=== PATIENT | male | born 1965 | race Caucasian/White ===

== ENCOUNTER 2017-08-26 19:40 | Emergency (ER) | payer OTHER ==
[~2017-08-26] VITALS: Ht 167.6 cm; Wt 141.8 kg
[2017-08-26 20:35] LABS: HEMATOCRIT 32.5 % (38.0-50.0); HEMOGLOBIN 10.4 G/DL (12.5-16.6); MCH 27.5 PG (29.0-34.0); PLATELET COUNT 267 K/uL (156-360); RBC DIS.WIDTH-CV 19.9 % (11.8-14.6); RBC DIS.WIDTH-SD 61.4 % (39-53); RED BLOOD COUNT 3.78 M/uL (4.00-5.50); WHITE BLOOD COUNT 6.8 K/uL (4.1-10.2)
[2017-08-26 20:47] LABS: ALBUMIN 3.4 g/dL (3.2-4.8); CHLORIDE 108 mEq/L (99-109); POTASSIUM 4.1 mEq/L (3.7-5.4); SODIUM 144 mEq/L (136-147)
[2017-08-26 20:49] LABS: GLUCOSE 103 mg/dL (70-99)
[2017-08-26 20:50] LABS: TOTAL PROTEIN 7.7 g/dL (6.4-8.3)
[2017-08-26 20:51] LABS: TOTAL BILIRUBIN 0.3 mg/dL (0.0-1.0)
[2017-08-26 20:53] LABS: ALKALINE PHOSPHATASE 129 IU/L (3-129); CREATININE 1.3 mg/dL (0.6-1.3); GFR ESTIMATE (CALCULATED) > 59 mL/min/ (58.99-99999)
[2017-08-26 20:54] LABS: UREA NITROGEN (BUN) 21 mg/dL (9-23)
[2017-08-26 20:55] LABS: AST (GOT) 17 IU/L (2-34)
[2017-08-26 20:56] LABS: ALT (GPT) 35 IU/L (3-49)
[2017-08-26 21:29] LABS: APPEARANCE CLEAR ((CLEAR)); BILIRUBIN NEGATIVE; BLOOD NEGATIVE; COLOR YELLOW ((YELLOW)); GLUCOSE (STRIP) NEGATIVE; KETONES NEGATIVE; LEUKOCYTES MODERATE; NITRITE NEGATIVE; PROTEIN (STRIP) NEGATIVE; SPECIFIC GRAVITY 1.018 (1.000-1.030); UROBILINOGEN 0.2 MG/DL (0.2-1.0)
[2017-08-26 21:32] LABS: BACTERIA RARE /HPF; EPITHELIAL CELLS RARE /HPF; MUCUS TRACE /LPF; RED BLOOD CELLS 0-5 /HPF (0-5); UCUL ADDED? YES; WHITE BLOOD CELLS 40-50 /HPF (0-5)
[2017-08-26] MEDS ORDERED: CIPRO500 MG PO (23:00)
[2017-08-26] MEDS ORDERED: FLAGYL500 MG PO (23:00)
[2017-08-26 23:13] VITALS: BP 158/102
== END 2017-08-26 23:14 | disposition home or self-care (01) ==
LOC: EME 19:40
DX: K57.32 Diverticulitis of large intestine without perforation or abscess without bleeding (principal); N20.0 Calculus of kidney; Z90.49 Acquired absence of other specified parts of digestive tract
CPT/HCPCS: 74177; 80053; 81003; 85027; 87086; 99281; 99284

== ENCOUNTER 2017-11-02 21:56 | Inpatient (IN) | payer OTHER ==
[~2017-11-02] VITALS: Ht 167.6 cm; Wt 141.5 kg
[~2017-11-02 21:56] MED LIST: CIPRO500 MG PO; FLAGYL500 MG PO
[2017-11-02 22:46] LABS: HEMATOCRIT 36.1 % (38.0-50.0); HEMOGLOBIN 11.9 G/DL (12.5-16.6); MCH 27.9 PG (29.0-34.0); PLATELET COUNT 250 K/uL (156-360); RBC DIS.WIDTH-SD 43.1 % (39-53); RED BLOOD COUNT 4.27 M/uL (4.00-5.50); WHITE BLOOD COUNT 14.2 K/uL (4.1-10.2)
[2017-11-02 22:48] LABS: MCV 84.5 FL (86-99)
[2017-11-02 22:56] LABS: ALBUMIN 3.3 g/dL (3.2-4.8)
[2017-11-02 22:57] LABS: CHLORIDE 103 mEq/L (99-109); POTASSIUM 3.4 mEq/L (3.7-5.4); SODIUM 135 mEq/L (136-147)
[2017-11-02 22:59] LABS: GLUCOSE 123 mg/dL (70-99); TOTAL PROTEIN 7.8 g/dL (6.4-8.3)
[2017-11-02 23:01] LABS: TOTAL BILIRUBIN 0.5 mg/dL (0.0-1.0)
[2017-11-02 23:02] LABS: ALKALINE PHOSPHATASE 71 IU/L (3-129)
[2017-11-02 23:03] LABS: GFR ESTIMATE (CALCULATED) 38 mL/min/ (58.99-99999)
[2017-11-02 23:04] LABS: AST (GOT) 12 IU/L (2-34); UREA NITROGEN (BUN) 22 mg/dL (9-23)
[2017-11-02 23:05] LABS: ALT (GPT) 10 IU/L (3-49)
[2017-11-03] VITALS (9 sets, daily range): BP systolic 83–136; BP diastolic 50–74
[2017-11-03 01:35] LABS: APPEARANCE SL.HAZY ((CLEAR)); BILIRUBIN NEGATIVE; BLOOD NEGATIVE; COLOR AMBER ((YELLOW)); GLUCOSE (STRIP) NEGATIVE; KETONES 5; LEUKOCYTES MODERATE; NITRITE NEGATIVE; PROTEIN (STRIP) 100; UROBILINOGEN 0.2 MG/DL (0.2-1.0)
[2017-11-03 01:38] LABS: BACTERIA NONE SEEN /HPF; EPITHELIAL CELLS RARE /HPF; MUCUS TRACE /LPF; RED BLOOD CELLS 0-5 /HPF (0-5); UCUL ADDED? YES
[2017-11-03] MEDS ORDERED: ALLOPURINOL100 MG PO (01:42)
[2017-11-03] MEDS ORDERED: PRAVASTATIN SOD20 MG PO (01:43)
[2017-11-03] MEDS ORDERED: INDOMETHACIN25 MG PO (01:43)
[2017-11-03] MEDS ORDERED: PANTOPRAZOLE SO40 MG PO (01:44)
[2017-11-03] MEDS ORDERED: ELIQUIS5 MG PO (01:44)
[2017-11-03] MEDS ORDERED: CARDIZEM CD,CA240 MG PO (01:46)
[2017-11-03 20:17] LABS: BASOPHIL (%) 0.2 % (0-1); EOSINOPHIL (%) 0.3 % (0-5); HEMATOCRIT 34.9 % (38.0-50.0); HEMOGLOBIN 10.9 G/DL (12.5-16.6); IMMATURE GRANULOCYTE (%) 0.4 % (0.0-0.7); LYMPHOCYTE (%) 6.1 % (15-42); LYMPHOCYTE COUNT 0.8 K/uL (1.0-2.8); MCH 27.3 PG (29.0-34.0); MCHC 31.2 G/DL (30.0-36.0); MCV 87.3 FL (86-99); MONOCYTE (%) 6.7 % (3-12); MONOCYTE COUNT 0.9 K/uL (0-0.8); NEUTROPHIL (%) 86.3 % (45-76); PLATELET COUNT 220 K/uL (156-360); RBC DIS.WIDTH-SD 44.9 % (39-53); WHITE BLOOD COUNT 12.8 K/uL (4.1-10.2)
[2017-11-03 20:41] LABS: ALBUMIN 2.7 G/DL (3.2-4.8); ALKALINE PHOSPHATASE 156 IU/L (3-129); ALT (GPT) 10 IU/L (3-49); AST (GOT) 15 IU/L (2-34); CHLORIDE 107 MEQ/L (99-109); SODIUM 139 MEQ/L (136-147); TOTAL BILIRUBIN 0.3 MG/DL (0.0-1.0); UREA NITROGEN (BUN) 20 mg/dL (9-23)
[2017-11-03 20:49] LABS: CREATININE 1.5 MG/DL (0.6-1.3); GFR ESTIMATE (CALCULATED) 52 mL/min/ (58.99-99999); GLUCOSE 92 mg/dL (70-99)
[2017-11-03 21:53] LABS: HIGH-SENS C-REACTIVE PROTEIN > 8.00 MG/DL (0.02-0.20)
[2017-11-04 03:42] VITALS: BP 128/77
[2017-11-04 05:37] LABS: UR CREATININE CONCENTRATION 155.2 MG/DL
[2017-11-04 06:26] LABS: BASOPHIL (%) 0.2 % (0-1); EOSINOPHIL (%) 0.3 % (0-5); HEMATOCRIT 35.9 % (38.0-50.0); IMMATURE GRANULOCYTE (%) 0.5 % (0.0-0.7); LYMPHOCYTE (%) 7.3 % (15-42); LYMPHOCYTE COUNT 0.9 K/uL (1.0-2.8); MCHC 30.6 G/DL (30.0-36.0); MONOCYTE (%) 5.9 % (3-12); MONOCYTE COUNT 0.7 K/uL (0-0.8); NEUTROPHIL (%) 85.8 % (45-76); NEUTROPHIL COUNT 10.7 K/uL (1.8-6.4); PLATELET COUNT 230 K/uL (156-360); RED BLOOD COUNT 4.08 M/uL (4.00-5.50); WHITE BLOOD COUNT 12.5 K/uL (4.1-10.2)
[2017-11-04 06:50] LABS: ALBUMIN 2.5 G/DL (3.2-4.8); ALKALINE PHOSPHATASE 134 IU/L (3-129); ALT (GPT) 9 IU/L (3-49); AST (GOT) 12 IU/L (2-34); CHLORIDE 108 MEQ/L (99-109); CREATININE 1.4 MG/DL (0.6-1.3); GFR ESTIMATE (CALCULATED) 57 mL/min/ (58.99-99999); GLUCOSE 73 mg/dL (70-99); POTASSIUM 3.8 MEQ/L (3.7-5.4); SODIUM 141 MEQ/L (136-147); TOTAL BILIRUBIN 0.3 MG/DL (0.0-1.0); TOTAL PROTEIN 5.8 G/DL (6.4-8.3); UREA NITROGEN (BUN) 20 mg/dL (9-23)
[2017-11-04 07:37] VITALS: BP 115/59
[2017-11-04 10:57] VITALS: BP 114/59
[2017-11-04 15:51] VITALS: BP 113/58
[2017-11-05 01:21] VITALS: BP 136/74
[2017-11-05 04:28] VITALS: BP 122/67
[2017-11-05 06:11] LABS: BASOPHIL (%) 0.2 % (0-1); EOSINOPHIL (%) 0.8 % (0-5); EOSINOPHIL COUNT 0.1 K/uL (0-0.3); HEMATOCRIT 36.4 % (38.0-50.0); IMMATURE GRANULOCYTE (%) 0.5 % (0.0-0.7); LYMPHOCYTE (%) 6.7 % (15-42); LYMPHOCYTE COUNT 0.7 K/uL (1.0-2.8); MCH 26.6 PG (29.0-34.0); MCHC 30.2 G/DL (30.0-36.0); MCV 88.1 FL (86-99); MONOCYTE (%) 5.1 % (3-12); MONOCYTE COUNT 0.5 K/uL (0-0.8); NEUTROPHIL (%) 86.7 % (45-76); NEUTROPHIL COUNT 8.7 K/uL (1.8-6.4); PLATELET COUNT 258 K/uL (156-360); RBC DIS.WIDTH-CV 14.2 % (11.8-14.6); RBC DIS.WIDTH-SD 45.5 % (39-53); RED BLOOD COUNT 4.13 M/uL (4.00-5.50)
[2017-11-05 06:35] LABS: CHLORIDE 110 MEQ/L (99-109); CREATININE 1.2 MG/DL (0.6-1.3); GFR ESTIMATE (CALCULATED) > 59 mL/min/ (58.99-99999); GLUCOSE 90 mg/dL (70-99); MAGNESIUM 1.8 mg/dl (1.3-2.7); PHOSPHORUS 3.6 mg/dL (2.5-4.9); SODIUM 141 MEQ/L (136-147); UREA NITROGEN (BUN) 16 mg/dL (9-23)
[2017-11-05 07:19] VITALS: BP 136/62
[2017-11-05 11:17] VITALS: BP 136/70
[2017-11-05 15:34] VITALS: BP 123/71
[2017-11-05 19:30] VITALS: BP 127/63
[2017-11-06] VITALS (7 sets, daily range): BP systolic 121–166; BP diastolic 73–94
[2017-11-07] VITALS (7 sets, daily range): BP systolic 134–1374; BP diastolic 71–92
[2017-11-08 03:36] VITALS: BP 133/79
[2017-11-08 06:43] LABS: HEMATOCRIT 33.1 % (38.0-50.0); HEMOGLOBIN 10.3 G/DL (12.5-16.6); MCH 26.8 PG (29.0-34.0); MCHC 31.1 G/DL (30.0-36.0); PLATELET COUNT 277 K/uL (156-360); RBC DIS.WIDTH-CV 13.7 % (11.8-14.6); RBC DIS.WIDTH-SD 43.4 % (39-53); RED BLOOD COUNT 3.85 M/uL (4.00-5.50); WHITE BLOOD COUNT 7.3 K/uL (4.1-10.2)
[2017-11-08 06:55] VITALS: BP 140/83
[2017-11-08 07:09] LABS: CHLORIDE 111 MEQ/L (99-109); CREATININE 0.8 MG/DL (0.6-1.3); GFR ESTIMATE (CALCULATED) > 59 mL/min/ (58.99-99999); GLUCOSE 102 mg/dL (70-99); PHOSPHORUS 3.6 mg/dL (2.5-4.9); POTASSIUM 3.3 MEQ/L (3.7-5.4); SODIUM 143 MEQ/L (136-147); UREA NITROGEN (BUN) 6 mg/dL (9-23)
[2017-11-08 07:10] LABS: MAGNESIUM 1.5 mg/dl (1.3-2.7)
[2017-11-08 11:34] VITALS: BP 156/93
[2017-11-08 16:17] VITALS: BP 139/78
[2017-11-09 00:21] VITALS: BP 140/74
[2017-11-09 07:30] VITALS: BP 147/67
[2017-11-09 12:20] VITALS: BP 138/91
[2017-11-09 17:04] VITALS: BP 169/89
[2017-11-09 23:15] VITALS: BP 159/93
[2017-11-10 06:50] LABS: HEMATOCRIT 36.7 % (38.0-50.0); HEMOGLOBIN 11.5 G/DL (12.5-16.6); MCH 26.6 PG (29.0-34.0); MCHC 31.3 G/DL (30.0-36.0); PLATELET COUNT 333 K/uL (156-360); RBC DIS.WIDTH-CV 13.8 % (11.8-14.6); RED BLOOD COUNT 4.32 M/uL (4.00-5.50); WHITE BLOOD COUNT 11.4 K/uL (4.1-10.2)
[2017-11-10 07:35] VITALS: BP 160/89
[2017-11-10 07:44] LABS: CHLORIDE 113 MEQ/L (99-109); CREATININE 0.7 MG/DL (0.6-1.3); GFR ESTIMATE (CALCULATED) > 59 mL/min/ (58.99-99999); GLUCOSE 92 mg/dL (70-99); POTASSIUM 3.2 MEQ/L (3.7-5.4); SODIUM 147 MEQ/L (136-147); UREA NITROGEN (BUN) 4 mg/dL (9-23)
[2017-11-10 16:21] VITALS: BP 160/88
[2017-11-11 00:10] VITALS: BP 158/79
[2017-11-11 06:49] LABS: HEMATOCRIT 38.6 % (38.0-50.0); MCH 26.3 PG (29.0-34.0); MCHC 31.1 G/DL (30.0-36.0); MCV 84.6 FL (86-99); PLATELET COUNT 332 K/uL (156-360); RBC DIS.WIDTH-CV 13.9 % (11.8-14.6); RBC DIS.WIDTH-SD 42.8 % (39-53); RED BLOOD COUNT 4.56 M/uL (4.00-5.50); WHITE BLOOD COUNT 14.3 K/uL (4.1-10.2)
[2017-11-11 07:53] VITALS: BP 174/75
[2017-11-11 15:57] VITALS: BP 171/89
[2017-11-12 00:20] VITALS: BP 148/78
[2017-11-12 06:02] LABS: CHLORIDE 106 MEQ/L (99-109); CREATININE 0.9 MG/DL (0.6-1.3); GFR ESTIMATE (CALCULATED) > 59 mL/min/ (58.99-99999); GLUCOSE 99 mg/dL (70-99); POTASSIUM 3.3 MEQ/L (3.7-5.4); SODIUM 143 MEQ/L (136-147); UREA NITROGEN (BUN) 6 mg/dL (9-23)
[2017-11-12 07:45] VITALS: BP 174/100
[2017-11-12 23:35] VITALS: BP 169/88
[2017-11-13 08:46] VITALS: BP 139/97
[2017-11-13 16:05] VITALS: BP 163/87
[2017-11-13 19:47] VITALS: BP 169/94
[2017-11-13 23:33] VITALS: BP 150/92
[2017-11-14 07:45] LABS: CHLORIDE 106 MEQ/L (99-109); CREATININE 0.8 MG/DL (0.6-1.3); GFR ESTIMATE (CALCULATED) > 59 mL/min/ (58.99-99999); GLUCOSE 106 mg/dL (70-99); POTASSIUM 3.6 MEQ/L (3.7-5.4); SODIUM 140 MEQ/L (136-147); UREA NITROGEN (BUN) 6 mg/dL (9-23)
[2017-11-14 07:47] LABS: HEMATOCRIT 38.9 % (38.0-50.0); HEMOGLOBIN 12.2 G/DL (12.5-16.6); MCH 26.8 PG (29.0-34.0); MCHC 31.4 G/DL (30.0-36.0); MCV 85.3 FL (86-99); PLATELET COUNT 365 K/uL (156-360); RBC DIS.WIDTH-CV 14.6 % (11.8-14.6); RBC DIS.WIDTH-SD 44.7 % (39-53); RED BLOOD COUNT 4.56 M/uL (4.00-5.50); WHITE BLOOD COUNT 13.4 K/uL (4.1-10.2)
[2017-11-14 08:16] VITALS: BP 164/83
[2017-11-14 16:00] VITALS: BP 135/91
[2017-11-14 23:26] VITALS: BP 115/70
[2017-11-15 05:47] LABS: HEMATOCRIT 38.1 % (38.0-50.0); HEMOGLOBIN 12.3 G/DL (12.5-16.6); MCH 26.9 PG (29.0-34.0); MCHC 32.3 G/DL (30.0-36.0); MCV 83.2 FL (86-99); PLATELET COUNT 342 K/uL (156-360); RBC DIS.WIDTH-CV 14.6 % (11.8-14.6); RBC DIS.WIDTH-SD 43.4 % (39-53); RED BLOOD COUNT 4.58 M/uL (4.00-5.50); WHITE BLOOD COUNT 12.4 K/uL (4.1-10.2)
[2017-11-15 06:32] LABS: CHLORIDE 105 MEQ/L (99-109); CREATININE 0.6 MG/DL (0.6-1.3); GFR ESTIMATE (CALCULATED) > 59 mL/min/ (58.99-99999); GLUCOSE 112 mg/dL (70-99); POTASSIUM 3.2 MEQ/L (3.7-5.4); SODIUM 141 MEQ/L (136-147); UREA NITROGEN (BUN) 7 mg/dL (9-23)
[2017-11-15 08:14] VITALS: BP 133/85
[2017-11-15 15:44] VITALS: BP 130/80
[2017-11-15 19:54] VITALS: BP 146/84
[2017-11-15 23:49] VITALS: BP 112/66
[2017-11-16 06:40] LABS: CHLORIDE 104 MEQ/L (99-109); CREATININE 0.8 MG/DL (0.6-1.3); GFR ESTIMATE (CALCULATED) > 59 mL/min/ (58.99-99999); GLUCOSE 125 mg/dL (70-99); POTASSIUM 3.8 MEQ/L (3.7-5.4); SODIUM 141 MEQ/L (136-147); UREA NITROGEN (BUN) 7 mg/dL (9-23)
[2017-11-16 08:43] VITALS: BP 125/69
[2017-11-16 15:53] VITALS: BP 160/72
[2017-11-16 21:23] VITALS: BP 118/69
[2017-11-16 21:30] VITALS: BP 118/69
[2017-11-16 23:48] VITALS: BP 133/79
[2017-11-17 00:02] LABS: C DIFF TOXIN NEGATIVE (NEGATIVE)
[2017-11-17 01:13] LABS: BASOPHIL (%) 0.1 % (0-1); EOSINOPHIL (%) 0.5 % (0-5); EOSINOPHIL COUNT 0.1 K/uL (0-0.3); HEMATOCRIT 37.2 % (38.0-50.0); IMMATURE GRANULOCYTE (%) 0.3 % (0.0-0.7); LYMPHOCYTE (%) 5.6 % (15-42); LYMPHOCYTE COUNT 0.8 K/uL (1.0-2.8); MCH 26.8 PG (29.0-34.0); MCHC 32.3 G/DL (30.0-36.0); MCV 83.2 FL (86-99); MONOCYTE COUNT 0.9 K/uL (0-0.8); NEUTROPHIL (%) 87.5 % (45-76); NEUTROPHIL COUNT 12.6 K/uL (1.8-6.4); PLATELET COUNT 386 K/uL (156-360); RBC DIS.WIDTH-CV 14.6 % (11.8-14.6); RBC DIS.WIDTH-SD 43.7 % (39-53); RED BLOOD COUNT 4.47 M/uL (4.00-5.50); WHITE BLOOD COUNT 14.4 K/uL (4.1-10.2)
[2017-11-17 01:14] LABS: HEMATOCRIT 37.3 % (38.0-50.0); HEMOGLOBIN 12.2 G/DL (12.5-16.6); MCH 27.4 PG (29.0-34.0); MCHC 32.7 G/DL (30.0-36.0); MCV 83.6 FL (86-99); PLATELET COUNT 380 K/uL (156-360); RBC DIS.WIDTH-CV 14.6 % (11.8-14.6); RED BLOOD COUNT 4.46 M/uL (4.00-5.50)
[2017-11-17 01:34] LABS: TROP-I INTERPRETATION NEGATIVE; TROPONIN-I 0.01 ng/mL (0.0-0.30)
[2017-11-17 03:42] VITALS: BP 138/78
[2017-11-17 07:28] VITALS: BP 122/66
[2017-11-17 11:52] VITALS: BP 109/61
[2017-11-17 15:47] VITALS: BP 97/56
[2017-11-17 19:52] VITALS: BP 104/63
[2017-11-17 23:29] VITALS: BP 103/63
[2017-11-18 04:05] VITALS: BP 102/66
[2017-11-18 06:29] LABS: BASOPHIL (%) 0.2 % (0-1); EOSINOPHIL (%) 1.6 % (0-5); EOSINOPHIL COUNT 0.1 K/uL (0-0.3); HEMATOCRIT 33.9 % (38.0-50.0); HEMOGLOBIN 10.6 G/DL (12.5-16.6); IMMATURE GRANULOCYTE (%) 0.3 % (0.0-0.7); LYMPHOCYTE (%) 16.5 % (15-42); LYMPHOCYTE COUNT 1.1 K/uL (1.0-2.8); MCH 26.7 PG (29.0-34.0); MCHC 31.3 G/DL (30.0-36.0); MCV 85.4 FL (86-99); MONOCYTE COUNT 0.8 K/uL (0-0.8); NEUTROPHIL (%) 69.4 % (45-76); NEUTROPHIL COUNT 4.5 K/uL (1.8-6.4); PLATELET COUNT 364 K/uL (156-360); RBC DIS.WIDTH-CV 14.8 % (11.8-14.6); RBC DIS.WIDTH-SD 45.4 % (39-53); RED BLOOD COUNT 3.97 M/uL (4.00-5.50); WHITE BLOOD COUNT 6.4 K/uL (4.1-10.2)
[2017-11-18 06:53] LABS: ALBUMIN 2.7 G/DL (3.2-4.8); ALKALINE PHOSPHATASE 52 IU/L (3-129); ALT (GPT) 4 IU/L (3-49); AST (GOT) < 7 IU/L (2-34); CHLORIDE 105 MEQ/L (99-109); CREATININE 1.1 MG/DL (0.6-1.3); DIRECT BILIRUBIN 0.1 mg/dL (0.0-0.3); GFR ESTIMATE (CALCULATED) > 59 mL/min/ (58.99-99999); GLUCOSE 129 mg/dL (70-99); MAGNESIUM 1.5 mg/dl (1.3-2.7); PHOSPHORUS 4.3 mg/dL (2.5-4.9); POTASSIUM 3.7 MEQ/L (3.7-5.4); PREALBUMIN 10.2 mg/dL (10-40); SODIUM 141 MEQ/L (136-147); TOTAL BILIRUBIN 0.3 MG/DL (0.0-1.0); TOTAL PROTEIN 6.2 G/DL (6.4-8.3); TRIGLYCERIDES 124 MG/DL (Normal: <150); UREA NITROGEN (BUN) 16 mg/dL (9-23)
[2017-11-18 07:16] VITALS: BP 132/64
[2017-11-18 12:24] VITALS: BP 125/62
[2017-11-18 16:52] VITALS: BP 119/76
[2017-11-18 19:42] VITALS: BP 117/61
[2017-11-18 22:42] VITALS: BP 117/59
[2017-11-19 04:00] VITALS: BP 108/70
[2017-11-19 05:48] LABS: CHLORIDE 109 MEQ/L (99-109); CREATININE 0.9 MG/DL (0.6-1.3); GFR ESTIMATE (CALCULATED) > 59 mL/min/ (58.99-99999); GLUCOSE 136 mg/dL (70-99); MAGNESIUM 1.6 mg/dl (1.3-2.7); PHOSPHORUS 3.3 mg/dL (2.5-4.9); POTASSIUM 3.5 MEQ/L (3.7-5.4); SODIUM 143 MEQ/L (136-147); UREA NITROGEN (BUN) 21 mg/dL (9-23)
[2017-11-19 07:54] VITALS: BP 91/56
[2017-11-19 10:56] VITALS: BP 98/59
[2017-11-19 16:03] LABS: 24 HR VOLUME 725 MLS
[2017-11-19 16:19] VITALS: BP 104/56
[2017-11-19 16:36] LABS: URINE UREA NITROGEN 4473 MG/24 HR
[2017-11-19 19:31] VITALS: BP 110/71
[2017-11-19 23:35] VITALS: BP 109/63
[2017-11-20] VITALS (7 sets, daily range): BP systolic 99–158; BP diastolic 58–81
[2017-11-20 09:53] LABS: CHLORIDE 109 MEQ/L (99-109); CREATININE 0.8 MG/DL (0.6-1.3); GFR ESTIMATE (CALCULATED) > 59 mL/min/ (58.99-99999); GLUCOSE 164 mg/dL (70-99); MAGNESIUM 1.9 mg/dl (1.3-2.7); PHOSPHORUS 3.3 mg/dL (2.5-4.9); POTASSIUM 3.8 MEQ/L (3.7-5.4); SODIUM 142 MEQ/L (136-147); UREA NITROGEN (BUN) 24 mg/dL (9-23)
[2017-11-21 06:52] LABS: CHLORIDE 113 MEQ/L (99-109); CREATININE 0.7 MG/DL (0.6-1.3); GFR ESTIMATE (CALCULATED) > 59 mL/min/ (58.99-99999); GLUCOSE 138 mg/dL (70-99); MAGNESIUM 1.9 mg/dl (1.3-2.7); PHOSPHORUS 3.4 mg/dL (2.5-4.9); POTASSIUM 3.8 MEQ/L (3.7-5.4); SODIUM 143 MEQ/L (136-147); UREA NITROGEN (BUN) 20 mg/dL (9-23)
[2017-11-21 07:45] VITALS: BP 137/74
[2017-11-21 15:52] VITALS: BP 126/71
[2017-11-22 00:21] VITALS: BP 163/70
[2017-11-22 07:13] LABS: BASOPHIL (%) 0.3 % (0-1); EOSINOPHIL (%) 1.4 % (0-5); EOSINOPHIL COUNT 0.1 K/uL (0-0.3); HEMATOCRIT 29.1 % (38.0-50.0); IMMATURE GRANULOCYTE (%) 0.2 % (0.0-0.7); LYMPHOCYTE (%) 11.3 % (15-42); LYMPHOCYTE COUNT 0.7 K/uL (1.0-2.8); MCH 26.6 PG (29.0-34.0); MCHC 29.2 G/DL (30.0-36.0); MONOCYTE (%) 8.7 % (3-12); MONOCYTE COUNT 0.6 K/uL (0-0.8); NEUTROPHIL (%) 78.1 % (45-76); NEUTROPHIL COUNT 5.1 K/uL (1.8-6.4); RBC DIS.WIDTH-CV 16.2 % (11.8-14.6); RBC DIS.WIDTH-SD 53.4 % (39-53); WHITE BLOOD COUNT 6.5 K/uL (4.1-10.2)
[2017-11-22 07:14] LABS: HEMOGLOBIN 8.5 G/DL (12.5-16.6); MCV 90.9 FL (86-99)
[2017-11-22 07:37] LABS: PLAT.SUFFICIENCY ADEQUATE; PLATELET COUNT 188 K/uL (156-360)
[2017-11-22 07:46] VITALS: BP 117/68
[2017-11-22] MEDS ORDERED: DILTIAZEM 24HR240 MG PO (08:16)
[2017-11-22] MEDS ORDERED: NIFEDIPINE ER30 MG PO ×2 (08:16→13:28)
[2017-11-22] MEDS ORDERED: CARVEDILOL25 MG PO ×2 (08:16→13:28)
[2017-11-22 09:15] LABS: ALBUMIN 2.4 G/DL (3.2-4.8); ALKALINE PHOSPHATASE 50 IU/L (3-129); ALT (GPT) 5 IU/L (3-49); AST (GOT) < 7 IU/L (2-34); CHLORIDE 114 MEQ/L (99-109); CREATININE 0.7 MG/DL (0.6-1.3); DIRECT BILIRUBIN 0.1 mg/dL (0.0-0.3); GFR ESTIMATE (CALCULATED) > 59 mL/min/ (58.99-99999); GLUCOSE 148 mg/dL (70-99); MAGNESIUM 2.1 mg/dl (1.3-2.7); PHOSPHORUS 3.1 mg/dL (2.5-4.9); POTASSIUM 4.2 MEQ/L (3.7-5.4); PREALBUMIN 13.9 mg/dL (10-40); SODIUM 145 MEQ/L (136-147); TOTAL BILIRUBIN 0.3 MG/DL (0.0-1.0); TOTAL PROTEIN 5.5 G/DL (6.4-8.3); TRIGLYCERIDES 89 MG/DL (Normal: <150); UREA NITROGEN (BUN) 22 mg/dL (9-23)
[2017-11-22] MEDS ORDERED: CEFTRIAXONE2 G1 IV (11:26)
[2017-11-22] MEDS ORDERED: FLAGYL500 MG PO (11:27)
[2017-11-22] MEDS ORDERED: BACTRIM,SEPT1 TABLET PO (11:27)
[2017-11-22] MEDS ORDERED: HYDROCODON-ACE1 EAC9 PO (11:30)
[2017-11-22] MEDS ORDERED: CARDIZEM CD,CA240 MG PO (13:27)
== END 2017-11-22 14:48 | disposition home or self-care (01) | DRG 871 ==
LOC: EME 21:56 → EDOF 11-03 02:28 → 2EAST 11-03 02:28 → ENRESERV 11-03 02:29 → 2EAST 11-03 03:53 → CANRESERV 11-03 15:47 → ENRESERV 11-03 15:47 → 2EAST 11-03 19:35
PROVIDERS: Hospitalist; Internal Medicine; Internal Medicine Nephrology; Physician Assistant; Surgery; Thoracic Surgery (Cardiothoracic Vascular Surgery)
PROC: 0W9J30Z Drainage of Pelvic Cavity with Drainage Device, Percutaneous Approach (ICD-10-PCS; principal; 2017-11-10)
PROC: 02HV33Z Insertion of Infusion Device into Superior Vena Cava, Percutaneous Approach (ICD-10-PCS; 2017-11-18)
PROC: 2W53XYZ Removal of Other Device on Abdominal Wall (ICD-10-PCS; 2017-11-18)
DX: A41.9 Sepsis, unspecified organism (principal); K57.20 Diverticulitis of large intestine with perforation and abscess without bleeding; I10 Essential (primary) hypertension; E78.5 Hyperlipidemia, unspecified; E66.01 Morbid (severe) obesity due to excess calories; Z68.43 Body mass index [BMI] 50.0-59.9, adult; M10.9 Gout, unspecified; K21.9 Gastro-esophageal reflux disease without esophagitis; G47.33 Obstructive sleep apnea (adult) (pediatric); N17.0 Acute kidney failure with tubular necrosis; E11.9 Type 2 diabetes mellitus without complications; Z79.01 Long term (current) use of anticoagulants; W19.XXXA Unspecified fall, initial encounter; E44.0 Moderate protein-calorie malnutrition; Z86.718 Personal history of other venous thrombosis and embolism; E87.6 Hypokalemia; E87.1 Hypo-osmolality and hyponatremia; I48.2 Chronic atrial fibrillation; L73.9 Follicular disorder, unspecified; Z91.19 Patient's noncompliance with other medical treatment and regimen; K63.2 Fistula of intestine
CPT/HCPCS: 10030; 49406; 70450; 71045; 72125; 72192; 72193; 73030; 74176; 76770; 76937; 80048; 80053; 81003; 81050; 82248; 82570; 82948; 83605; 83735; 84100; 84134; 84145 90; 84156; 84478; 84484; 84540; 84630 90; 85025; 85027; 86141; 87040; 87070; 87075; 87086; 87205; 87493; 89190; 93005; 94660; 94799; 99281; 99285; C1729; C1769; J0692; J0696; J1200; J2270; J2405; J2543; J3010; J3480; J7030; J7050; J7120; S0030

== ENCOUNTER 2017-12-13 15:46 | Inpatient (IN) | payer OTHER ==
[~2017-12-13] VITALS: Ht 165.1 cm; Wt 138.8 kg
[~2017-12-13 15:46] MED LIST changes: +ALLOPURINOL100 MG PO; +BACTRIM,SEPT1 TABLET PO; +CARDIZEM CD,CA240 MG PO; +CARVEDILOL25 MG PO; +CEFTRIAXONE2 G1 IV; +DILTIAZEM 24HR240 MG PO; +ELIQUIS5 MG PO; +HYDROCODON-ACE1 EAC9 PO; +INDOMETHACIN25 MG PO; +NIFEDIPINE ER30 MG PO; +PANTOPRAZOLE SO40 MG PO; +PRAVASTATIN SOD20 MG PO
[2017-12-13 16:27] LABS: BASOPHIL (%) 0.2 % (0-1); EOSINOPHIL COUNT 0.1 K/uL (0-0.3); HEMATOCRIT 31.3 % (38.0-50.0); IMMATURE GRANULOCYTE (%) 0.9 % (0.0-0.7); LYMPHOCYTE (%) 7.5 % (15-42); LYMPHOCYTE COUNT 0.8 K/uL (1.0-2.8); MCH 26.2 PG (29.0-34.0); MCHC 31.9 G/DL (30.0-36.0); MCV 81.9 FL (86-99); MONOCYTE COUNT 0.9 K/uL (0-0.8); NEUTROPHIL (%) 82.4 % (45-76); NEUTROPHIL COUNT 9.2 K/uL (1.8-6.4); PLATELET COUNT 249 K/uL (156-360); RBC DIS.WIDTH-CV 16.9 % (11.8-14.6); RBC DIS.WIDTH-SD 49.7 % (39-53); RED BLOOD COUNT 3.82 M/uL (4.00-5.50); WHITE BLOOD COUNT 11.2 K/uL (4.1-10.2)
[2017-12-13 16:36] LABS: ALBUMIN 2.8 g/dL (3.2-4.8); CHLORIDE 104 mEq/L (99-109); POTASSIUM 4.4 mEq/L (3.7-5.4); SODIUM 134 mEq/L (136-147)
[2017-12-13 16:39] LABS: GLUCOSE 108 mg/dL (70-99); TOTAL PROTEIN 6.9 g/dL (6.4-8.3)
[2017-12-13 16:40] LABS: TOTAL BILIRUBIN 0.7 mg/dL (0.0-1.0)
[2017-12-13 16:42] LABS: ALKALINE PHOSPHATASE 172 IU/L (3-129); CREATININE 1.3 mg/dL (0.6-1.3); GFR ESTIMATE (CALCULATED) > 59 mL/min/ (58.99-99999)
[2017-12-13 16:43] LABS: UREA NITROGEN (BUN) 12 mg/dL (9-23)
[2017-12-13 16:44] LABS: AST (GOT) 48 IU/L (2-34)
[2017-12-13 16:45] LABS: ALT (GPT) 30 IU/L (3-49)
[2017-12-13 16:46] LABS: LIPASE 9 U/L (1.0-51.0)
[2017-12-13 18:16] LABS: APPEARANCE CLEAR ((CLEAR)); BILIRUBIN NEGATIVE; BLOOD SMALL; COLOR YELLOW ((YELLOW)); GLUCOSE (STRIP) NEGATIVE; KETONES NEGATIVE; LEUKOCYTES TRACE; NITRITE NEGATIVE; PROTEIN (STRIP) NEGATIVE; SPECIFIC GRAVITY 1.012 (1.000-1.030)
[2017-12-13 18:33] LABS: BACTERIA RARE /HPF; EPITHELIAL CELLS NONE SEEN /HPF; HYALINE CASTS 0-5 /LPF; MUCUS TRACE /LPF
[2017-12-13 19:31] LABS: INTER. NORMALIZED RATIO 2.3
[2017-12-13 19:33] LABS: PTT 28.7 SEC (25-37)
[2017-12-13] MEDS ORDERED: COREG6.25 M1 PO (21:56)
[2017-12-13] MEDS ORDERED: DESYREL100 MG PO (21:56)
[2017-12-13] MEDS ORDERED: FLEXERIL10 MG PO (21:56)
[2017-12-13] MEDS ORDERED: TYLENOL EXTRA500 MG PO (21:57)
[2017-12-13 23:14] VITALS: BP 106/55
[2017-12-13 23:33] VITALS: BP 106/62
[2017-12-14] VITALS (17 sets, daily range): BP systolic 95–128; BP diastolic 55–77
[2017-12-14 06:44] LABS: HEMATOCRIT 22.6 % (38.0-50.0); MCH 25.7 PG (29.0-34.0); MCV 83.1 FL (86-99); PLATELET COUNT 189 K/uL (156-360); RBC DIS.WIDTH-CV 16.9 % (11.8-14.6); RBC DIS.WIDTH-SD 50.9 % (39-53); WHITE BLOOD COUNT 11.1 K/uL (4.1-10.2)
[2017-12-14 06:46] LABS: INTER. NORMALIZED RATIO 2.1
[2017-12-14 06:49] LABS: PTT 23.8 SEC (25-37)
[2017-12-14 06:50] LABS: RED BLOOD COUNT 2.72 M/uL (4.00-5.50)
[2017-12-14 06:53] LABS: CHLORIDE 107 MEQ/L (99-109); CREATININE 1.4 MG/DL (0.6-1.3); GFR ESTIMATE (CALCULATED) 57 mL/min/ (58.99-99999); GLUCOSE 132 mg/dL (70-99); MAGNESIUM 1.7 mg/dl (1.3-2.7); POTASSIUM 4.7 MEQ/L (3.7-5.4); PREALBUMIN 6.4 mg/dL (10-40); SODIUM 137 MEQ/L (136-147); UREA NITROGEN (BUN) 14 mg/dL (9-23)
[2017-12-14 07:07] LABS: PHOSPHORUS 4.9 mg/dL (2.5-4.9)
[2017-12-14 13:15] LABS: BASOPHIL (%) 0.1 % (0-1); EOSINOPHIL (%) 0 % (0-5); HEMATOCRIT 23.3 % (38.0-50.0); HEMOGLOBIN 7.3 G/DL (12.5-16.6); IMMATURE GRANULOCYTE (%) 1.3 % (0.0-0.7); LYMPHOCYTE (%) 5.3 % (15-42); LYMPHOCYTE COUNT 0.6 K/uL (1.0-2.8); MCHC 31.3 G/DL (30.0-36.0); MCV 82.9 FL (86-99); MONOCYTE (%) 3.5 % (3-12); MONOCYTE COUNT 0.4 K/uL (0-0.8); NEUTROPHIL (%) 89.8 % (45-76); NEUTROPHIL COUNT 9.6 K/uL (1.8-6.4); PLATELET COUNT 204 K/uL (156-360); RBC DIS.WIDTH-CV 16.9 % (11.8-14.6); RBC DIS.WIDTH-SD 51.2 % (39-53); RED BLOOD COUNT 2.81 M/uL (4.00-5.50); WHITE BLOOD COUNT 10.7 K/uL (4.1-10.2)
[2017-12-15] VITALS (18 sets, daily range): BP systolic 87–137; BP diastolic 53–83
[2017-12-15 06:01] LABS: HEMATOCRIT 20.6 % (38.0-50.0); MCH 26.1 PG (29.0-34.0); MCHC 31.1 G/DL (30.0-36.0); MCV 84.1 FL (86-99); PLATELET COUNT 192 K/uL (156-360); RBC DIS.WIDTH-CV 16.8 % (11.8-14.6); RBC DIS.WIDTH-SD 51.2 % (39-53); RED BLOOD COUNT 2.45 M/uL (4.00-5.50); WHITE BLOOD COUNT 8.7 K/uL (4.1-10.2)
[2017-12-15 06:02] LABS: HEMOGLOBIN 6.4 G/DL (12.5-16.6)
[2017-12-15 06:12] LABS: CHLORIDE 109 MEQ/L (99-109); GFR ESTIMATE (CALCULATED) > 59 mL/min/ (58.99-99999); GLUCOSE 107 mg/dL (70-99); POTASSIUM 4.1 MEQ/L (3.7-5.4); SODIUM 138 MEQ/L (136-147); UREA NITROGEN (BUN) 15 mg/dL (9-23); VANCOMYCIN, TROUGH 17.1 MCG/ML (10-20)
[2017-12-15 07:23] LABS: HEMATOCRIT 21.3 % (38.0-50.0); HEMOGLOBIN 6.8 G/DL (12.5-16.6); MCV 83.5 FL (86-99)
[2017-12-15 18:07] LABS: FERRITIN 509 NG/ML (22-322)
[2017-12-15 18:30] LABS: IRON 60 MCG/DL (35-150); TRANSFERRIN (TIBC) 84.6 mg/dL (215-380); TRANSFERRIN SATUR. 71 % (20-55)
[2017-12-16] VITALS (13 sets, daily range): BP systolic 104–138; BP diastolic 70–91
[2017-12-16 04:49] LABS: INTER. NORMALIZED RATIO 1.5
[2017-12-16 04:51] LABS: HEMATOCRIT 31.9 % (38.0-50.0); MCH 26.8 PG (29.0-34.0); MCHC 32.3 G/DL (30.0-36.0); MCV 83.1 FL (86-99); RBC DIS.WIDTH-SD 50.9 % (39-53)
[2017-12-16 04:52] LABS: HEMOGLOBIN 10.3 G/DL (12.5-16.6); PLATELET COUNT 286 K/uL (156-360); RED BLOOD COUNT 3.84 M/uL (4.00-5.50)
[2017-12-16 05:04] LABS: CHLORIDE 111 mEq/L (99-109); POTASSIUM 4.3 mEq/L (3.7-5.4); SODIUM 141 mEq/L (136-147)
[2017-12-16 05:06] LABS: GLUCOSE 115 mg/dL (70-99)
[2017-12-16 05:09] LABS: CREATININE 0.9 mg/dL (0.6-1.3); GFR ESTIMATE (CALCULATED) > 59 mL/min/ (58.99-99999)
[2017-12-16 05:10] LABS: UREA NITROGEN (BUN) 14 mg/dL (9-23)
[2017-12-17] VITALS (9 sets, daily range): BP systolic 99–130; BP diastolic 63–97
[2017-12-17 04:34] LABS: HEMATOCRIT 27.8 % (38.0-50.0); MCH 26.9 PG (29.0-34.0); MCHC 32.4 G/DL (30.0-36.0); MCV 83.2 FL (86-99); NRBC (%) 0.3 /100 WBC (0-0); PLATELET COUNT 270 K/uL (156-360); RBC DIS.WIDTH-CV 17.4 % (11.8-14.6); RBC DIS.WIDTH-SD 52.7 % (39-53); RED BLOOD COUNT 3.34 M/uL (4.00-5.50); WHITE BLOOD COUNT 8.9 K/uL (4.1-10.2)
[2017-12-17 05:19] LABS: CHLORIDE 111 mEq/L (99-109); SODIUM 140 mEq/L (136-147)
[2017-12-17 05:20] LABS: GLUCOSE 113 mg/dL (70-99)
[2017-12-17 05:24] LABS: CREATININE 0.9 mg/dL (0.6-1.3); GFR ESTIMATE (CALCULATED) > 59 mL/min/ (58.99-99999)
[2017-12-17 05:25] LABS: UREA NITROGEN (BUN) 12 mg/dL (9-23)
[2017-12-17 20:28] LABS: STOOL OCCULT BLD 1ST SPECIMEN NEGATIVE
[2017-12-17 20:59] LABS: C DIFF TOXIN POSITIVE (NEGATIVE)
[2017-12-18] VITALS (7 sets, daily range): BP systolic 112–136; BP diastolic 74–95
[2017-12-18 03:51] LABS: HEMATOCRIT 27.2 % (38.0-50.0); HEMOGLOBIN 8.7 G/DL (12.5-16.6); MCH 26.6 PG (29.0-34.0); MCV 83.2 FL (86-99); NRBC (%) 0.2 /100 WBC (0-0); PLATELET COUNT 294 K/uL (156-360); RBC DIS.WIDTH-CV 17.5 % (11.8-14.6); RBC DIS.WIDTH-SD 52.6 % (39-53); RED BLOOD COUNT 3.27 M/uL (4.00-5.50)
[2017-12-18 04:26] LABS: CHLORIDE 110 mEq/L (99-109); POTASSIUM 3.8 mEq/L (3.7-5.4); SODIUM 141 mEq/L (136-147)
[2017-12-18 04:27] LABS: GLUCOSE 102 mg/dL (70-99)
[2017-12-18 04:31] LABS: CREATININE 0.9 mg/dL (0.6-1.3); GFR ESTIMATE (CALCULATED) > 59 mL/min/ (58.99-99999)
[2017-12-18 04:32] LABS: UREA NITROGEN (BUN) 10 mg/dL (9-23)
[2017-12-19] VITALS (7 sets, daily range): BP systolic 121–145; BP diastolic 74–88
[2017-12-20 04:23] VITALS: BP 122/82
[2017-12-20 05:52] LABS: HEMATOCRIT 27.1 % (38.0-50.0); HEMOGLOBIN 8.4 G/DL (12.5-16.6); MCH 26.5 PG (29.0-34.0); MCV 85.5 FL (86-99); PLATELET COUNT 318 K/uL (156-360); RBC DIS.WIDTH-CV 18.2 % (11.8-14.6); RBC DIS.WIDTH-SD 55.8 % (39-53); RED BLOOD COUNT 3.17 M/uL (4.00-5.50)
[2017-12-20 08:30] VITALS: BP 125/76
[2017-12-20 11:30] VITALS: BP 118/81
[2017-12-20 15:00] VITALS: BP 117/84
[2017-12-20 19:25] VITALS: BP 126/78
[2017-12-21] VITALS (7 sets, daily range): BP systolic 107–142; BP diastolic 69–86
[2017-12-21 05:45] LABS: HEMATOCRIT 28.4 % (38.0-50.0); HEMOGLOBIN 8.7 G/DL (12.5-16.6); MCH 26.9 PG (29.0-34.0); MCHC 30.6 G/DL (30.0-36.0); MCV 87.7 FL (86-99); PLATELET COUNT 316 K/uL (156-360); RBC DIS.WIDTH-CV 18.6 % (11.8-14.6); RBC DIS.WIDTH-SD 57.5 % (39-53); RED BLOOD COUNT 3.24 M/uL (4.00-5.50); WHITE BLOOD COUNT 7.5 K/uL (4.1-10.2)
[2017-12-22 05:31] LABS: HEMATOCRIT 25.6 % (38.0-50.0); HEMOGLOBIN 7.9 G/DL (12.5-16.6); MCH 26.8 PG (29.0-34.0); MCHC 30.9 G/DL (30.0-36.0); MCV 86.8 FL (86-99); PLATELET COUNT 289 K/uL (156-360); RBC DIS.WIDTH-CV 18.7 % (11.8-14.6); RBC DIS.WIDTH-SD 56.3 % (39-53); RED BLOOD COUNT 2.95 M/uL (4.00-5.50); WHITE BLOOD COUNT 6.3 K/uL (4.1-10.2)
[2017-12-22 06:10] LABS: CHLORIDE 106 MEQ/L (99-109); GFR ESTIMATE (CALCULATED) > 59 mL/min/ (58.99-99999); GLUCOSE 103 mg/dL (70-99); POTASSIUM 4.1 MEQ/L (3.7-5.4); SODIUM 141 MEQ/L (136-147); UREA NITROGEN (BUN) 10 mg/dL (9-23)
[2017-12-22 07:11] VITALS: BP 114/66
[2017-12-22 15:09] VITALS: BP 117/74
[2017-12-23 00:05] VITALS: BP 126/75
[2017-12-23 06:52] VITALS: BP 120/67
[2017-12-23 23:55] VITALS: BP 116/78
[2017-12-24 07:16] VITALS: BP 141/83
[2017-12-24 16:15] VITALS: BP 113/73
[2017-12-25] VITALS: BP 127/67
[2017-12-25 07:25] VITALS: BP 119/84
[2017-12-25 14:57] VITALS: BP 113/74
[2017-12-25 23:24] VITALS: BP 135/80
[2017-12-26 06:59] VITALS: BP 127/77
[2017-12-26 15:07] VITALS: BP 117/70
[2017-12-26 21:52] VITALS: BP 133/76
[2017-12-26 23:55] VITALS: BP 131/93
[2017-12-27 07:47] VITALS: BP 120/80
[2017-12-27 15:41] VITALS: BP 130/91
[2017-12-27 23:04] VITALS: BP 118/78
[2017-12-28 07:17] VITALS: BP 125/75
[2017-12-28 08:38] LABS: HEMATOCRIT 27.1 % (38.0-50.0); HEMOGLOBIN 8.7 G/DL (12.5-16.6); MCH 28.2 PG (29.0-34.0); MCHC 32.1 G/DL (30.0-36.0); MCV 87.7 FL (86-99); RBC DIS.WIDTH-CV 20.3 % (11.8-14.6); RED BLOOD COUNT 3.09 M/uL (4.00-5.50); WHITE BLOOD COUNT 6.1 K/uL (4.1-10.2)
[2017-12-28 08:52] LABS: CHLORIDE 103 mEq/L (99-109); POTASSIUM 4.5 mEq/L (3.7-5.4); SODIUM 139 mEq/L (136-147)
[2017-12-28 08:54] LABS: GLUCOSE 102 mg/dL (70-99)
[2017-12-28 08:58] LABS: CREATININE 1.2 mg/dL (0.6-1.3); GFR ESTIMATE (CALCULATED) > 59 mL/min/ (58.99-99999)
[2017-12-28 09:25] LABS: PLAT.SUFFICIENCY ADEQUATE
[2017-12-28 09:31] LABS: PLATELET COUNT 202 K/uL (156-360)
[2017-12-28 09:58] LABS: UREA NITROGEN (BUN) 21 mg/dL (9-23)
[2017-12-28 15:09] VITALS: BP 124/72
[2017-12-28] MEDS ORDERED: VANCOCIN HCL125 MG PO (16:34)
[2017-12-28] MEDS ORDERED: NIFEREX-150,FE150 MG PO (16:34)
[2017-12-28] MEDS ORDERED: ERTAPENEM1 GM IM (16:36)
[2017-12-28] MEDS ORDERED: OXYCODONE HCL5 MG PO (16:55)
[2017-12-28 19:18] VITALS: BP 132/78
== END 2017-12-28 19:38 | DRG 872 ==
LOC: EME 15:46 → EXP 15:46 → SDC 23:46 → EXP 23:46 → 2SOUTH 12-14 01:13 → 4EAST 12-14 01:13 → 4WEST 12-14 01:13 → ENRESERV 12-14 02:16 → ENRESERVTM 12-14 04:15 → ENRESERVDT 12-14 04:15 → 4WEST 12-14 05:04 → CANRESERV 12-15 12:48 → ENRESERV 12-15 12:48 → 4WEST 12-15 13:42 → ENRESERV 12-19 09:48 → 4EAST 12-19 12:46 → ENRESERV 12-21 10:55 → 5SOUTH 12-21 14:17
PROVIDERS: Hospitalist; Internal Medicine; Internal Medicine Critical Care Medicine; Physician Assistant; Surgery
DX: A41.9 Sepsis, unspecified organism (principal); K57.20 Diverticulitis of large intestine with perforation and abscess without bleeding; A04.72 Enterocolitis due to Clostridium difficile, not specified as recurrent; K56.0 Paralytic ileus; R79.1 Abnormal coagulation profile; E66.01 Morbid (severe) obesity due to excess calories; Z79.01 Long term (current) use of anticoagulants; Z68.43 Body mass index [BMI] 50.0-59.9, adult; Z86.718 Personal history of other venous thrombosis and embolism; E78.5 Hyperlipidemia, unspecified; I48.2 Chronic atrial fibrillation; L02.214 Cutaneous abscess of groin; L03.311 Cellulitis of abdominal wall; I10 Essential (primary) hypertension; K21.9 Gastro-esophageal reflux disease without esophagitis; E44.0 Moderate protein-calorie malnutrition; G47.33 Obstructive sleep apnea (adult) (pediatric); I82.492 Acute embolism and thrombosis of other specified deep vein of left lower extremity; I87.8 Other specified disorders of veins; M10.9 Gout, unspecified; R16.1 Splenomegaly, not elsewhere classified; D63.8 Anemia in other chronic diseases classified elsewhere; B96.20 Unspecified Escherichia coli [E. coli] as the cause of diseases classified elsewhere; Z16.12 Extended spectrum beta lactamase (ESBL) resistance; I27.20 Pulmonary hypertension, unspecified; Z90.49 Acquired absence of other specified parts of digestive tract
CPT/HCPCS: 71045; 74176; 74177; 76937; 80048; 80053; 80202; 81003; 82272; 82330; 82728; 83540; 83605; 83690; 83735; 84100; 84134; 84466; 85014; 85018; 85025; 85027; 85610; 85730; 86850; 86900; 86901; 86920; 87040; 87070; 87075; 87077; 87186; 87205; 87493; 87641; 87801; 93005; 93306; 93970; 94799; 97530 GO; 99281; 99285; A6260; C1751; C1894; J0131; J0330; J0696; J1100; J1170; J1335; J1626; J1650; J1956; J2060; J2250; J2405; J3010; J3370; J3430; J7030; J7050; J7120; P9016; P9017

== ENCOUNTER 2018-01-06 10:40 | Emergency (ER) | payer OTHER ==
[~2018-01-06] VITALS: Ht 165.1 cm; Wt 135.3 kg
[~2018-01-06 10:40] MED LIST changes: +COREG6.25 M1 PO; +DESYREL100 MG PO; +ERTAPENEM1 GM IM; +FLEXERIL10 MG PO; +NIFEREX-150,FE150 MG PO; +OXYCODONE HCL5 MG PO; +TYLENOL EXTRA500 MG PO; +VANCOCIN HCL125 MG PO
[2018-01-06 12:05] LABS: BASOPHIL (%) 0.5 % (0-1); EOSINOPHIL (%) 2.7 % (0-5); EOSINOPHIL COUNT 0.2 K/uL (0-0.3); HEMATOCRIT 29.6 % (38.0-50.0); HEMOGLOBIN 9.4 G/DL (12.5-16.6); IMMATURE GRANULOCYTE (%) 0.3 % (0.0-0.7); LYMPHOCYTE (%) 18.4 % (15-42); LYMPHOCYTE COUNT 1.1 K/uL (1.0-2.8); MCH 28.3 PG (29.0-34.0); MCHC 31.8 G/DL (30.0-36.0); MCV 89.2 FL (86-99); MONOCYTE COUNT 0.5 K/uL (0-0.8); NEUTROPHIL (%) 70.1 % (45-76); NEUTROPHIL COUNT 4.2 K/uL (1.8-6.4); PLATELET COUNT 209 K/uL (156-360); RBC DIS.WIDTH-CV 18.7 % (11.8-14.6); RBC DIS.WIDTH-SD 61.2 % (39-53); RED BLOOD COUNT 3.32 M/uL (4.00-5.50)
[2018-01-06 12:20] LABS: ALBUMIN 3.3 g/dL (3.2-4.8); CHLORIDE 104 mEq/L (99-109); POTASSIUM 4.3 mEq/L (3.7-5.4); SODIUM 137 mEq/L (136-147)
[2018-01-06 12:22] LABS: GLUCOSE 103 mg/dL (70-99)
[2018-01-06 12:23] LABS: TOTAL PROTEIN 7.4 g/dL (6.4-8.3)
[2018-01-06 12:24] LABS: TOTAL BILIRUBIN 0.7 mg/dL (0.0-1.0)
[2018-01-06 12:26] LABS: ALKALINE PHOSPHATASE 92 IU/L (3-129); GFR ESTIMATE (CALCULATED) > 59 mL/min/ (58.99-99999)
[2018-01-06 12:27] LABS: UREA NITROGEN (BUN) 17 mg/dL (9-23)
[2018-01-06 12:28] LABS: AST (GOT) 11 IU/L (2-34)
[2018-01-06 12:29] LABS: ALT (GPT) 10 IU/L (3-49)
[2018-01-06 13:12] VITALS: BP 120/89
== END 2018-01-06 13:35 | disposition home or self-care (01) ==
LOC: EME 10:40
PROVIDERS: Emergency Medicine
DX: R10.9 Unspecified abdominal pain (principal); Z98.890 Other specified postprocedural states; I10 Essential (primary) hypertension; Z90.49 Acquired absence of other specified parts of digestive tract; Z87.442 Personal history of urinary calculi; Z79.01 Long term (current) use of anticoagulants; Z88.0 Allergy status to penicillin
CPT/HCPCS: 80053; 85025; 99281; 99284

== ENCOUNTER 2018-01-13 15:48 | Observation (INO) | payer OTHER ==
[~2018-01-13] VITALS: Ht 167.6 cm; Wt 141.0 kg
[2018-01-13 18:43] LABS: HEMATOCRIT 30.1 % (38.0-50.0); HEMOGLOBIN 9.5 G/DL (12.5-16.6); MCHC 31.6 G/DL (30.0-36.0); MCV 88.8 FL (86-99); PLATELET COUNT 246 K/uL (156-360); RBC DIS.WIDTH-CV 17.4 % (11.8-14.6); RBC DIS.WIDTH-SD 56.5 % (39-53); RED BLOOD COUNT 3.39 M/uL (4.00-5.50); WHITE BLOOD COUNT 6.6 K/uL (4.1-10.2)
[2018-01-13 18:54] LABS: CHLORIDE 110 mEq/L (99-109); POTASSIUM 4.1 mEq/L (3.7-5.4); SODIUM 142 mEq/L (136-147)
[2018-01-13 18:56] LABS: GLUCOSE 116 mg/dL (70-99)
[2018-01-13 19:00] LABS: GFR ESTIMATE (CALCULATED) > 59 mL/min/ (58.99-99999)
[2018-01-13 19:01] LABS: UREA NITROGEN (BUN) 17 mg/dL (9-23)
[2018-01-13 22:36] LABS: INTER. NORMALIZED RATIO 1.4
[2018-01-14] MEDS ORDERED: ALLOPURINOL300 MG PO (00:07)
[2018-01-14] MEDS ORDERED: KETOCONAZOLE60 GM TP (00:08)
[2018-01-14] MEDS ORDERED: FIBER GUMMIES1 EACH PO (00:09)
[2018-01-14] MEDS ORDERED: PANTOPRAZOLE SO40 MG PO (00:09)
[2018-01-14] MEDS ORDERED: INDOCIN25 MG PO (00:12)
[2018-01-14 01:00] VITALS: BP 147/84
[2018-01-14 04:00] VITALS: BP 126/81
[2018-01-14 07:30] VITALS: BP 148/95
[2018-01-14 12:00] VITALS: BP 154/88
[2018-01-14 12:50] VITALS: BP 150/90
[2018-01-14] MEDS ORDERED: BACTRIM,SEPT1 TABLET PO (12:51)
== END 2018-01-14 16:59 | disposition home or self-care (01) ==
LOC: EME 15:48 → 4EAST 23:41 → EDOF 23:41 → 4EAST 23:41
PROVIDERS: Emergency Medicine
PROC: 0J980ZZ Drainage of Abdomen Subcutaneous Tissue and Fascia, Open Approach (ICD-10-PCS; principal; 2018-01-13)
DX: L02.211 Cutaneous abscess of abdominal wall (principal); K57.32 Diverticulitis of large intestine without perforation or abscess without bleeding; R07.89 Other chest pain; W10.9XXA Fall (on) (from) unspecified stairs and steps, initial encounter; I48.91 Unspecified atrial fibrillation; D68.8 Other specified coagulation defects; E66.01 Morbid (severe) obesity due to excess calories; Z68.43 Body mass index [BMI] 50.0-59.9, adult; Z86.718 Personal history of other venous thrombosis and embolism; M10.9 Gout, unspecified; K21.9 Gastro-esophageal reflux disease without esophagitis; I10 Essential (primary) hypertension; G47.30 Sleep apnea, unspecified; D64.9 Anemia, unspecified; E78.5 Hyperlipidemia, unspecified; N20.0 Calculus of kidney; Z87.442 Personal history of urinary calculi; Z88.0 Allergy status to penicillin
CPT/HCPCS: 71046; 71260; 74177; 80048; 85027; 85610; 99281; 99285; G0378; J0744; J1170; J1650; J3010; J7120; S0030